=== PATIENT | female | born 1935 | race Caucasian/White ===

== ENCOUNTER 2017-05-11 00:19 | Emergency (ER) | payer OTHER ==
[~2017-05-11] VITALS: Ht 165.1 cm; Wt 68.0 kg
[~2017-05-11 00:19] MED LIST: AMLO5TAB2 PO; ASPI325T8 PO; HYDR12.53 PO; HYDR25TA9 PO; LEVO112T4 PO; METO25TA4 PO; PSYL1PAC7 PO; SIMV20TA3 PO; TOPROL XL PO
[2017-05-11] MEDS ORDERED: IV NORMAL SALINE 1000ML BAG 1,000 ML IV ONE ×2 (01:30→02:15)
[2017-05-11] MEDS ORDERED: ONDANSETRON PF 4 MG/2 ML VIAL. IV ONE ×2 (01:30→02:15)
[2017-05-11 02:02] LABS: BASO # 0.1 x10^3/uL (0.0-0.2); BASO % 1 % (0-3); EOS % 0 % (0-3); HEMOGLOBIN 14.9 g/dL (12.0-15.5); LYMPH # 1.1 x10^3/uL (1.0-4.8); LYMPH % 15 % (24-48); MEAN CORPUSCULAR HEMOGLOBIN 30 pg (25-35); MEAN CORPUSCULAR HGB CONC 34 g/dL (31-37); MEAN CORPUSCULAR VOLUME 87 fL (79-100); MONO % 9 % (0-9); NEUT % 76 % (31-73); PLATELET COUNT 292 x10^3/uL (140-400); RED BLOOD COUNT 5.05 x10^6/uL (3.50-5.40); RED CELL DISTRIBUTION WIDTH 14.2 % (11.5-14.5); WHITE BLOOD COUNT 7.6 x10^3/uL (4.0-11.0)
[2017-05-11 02:57] LABS: CALCIUM 8.6 mg/dL (8.5-10.1); CREATININE 0.4 mg/dL (0.6-1.0); GFR 152.4; POTASSIUM 3.4 mmol/L (3.5-5.1)
[2017-05-11 03:03] LABS: ALBUMIN 3.7 g/dL (3.4-5.0); ALBUMIN/GLOBULIN RATIO 1.2 (1.0-1.7); TOTAL BILIRUBIN 0.8 mg/dL (0.2-1.0); TOTAL PROTEIN 6.9 g/dL (6.4-8.2)
[2017-05-11 03:10] LABS: BACTERIA,URINE FEW /HPF (0-FEW); BILIRUBIN,URINE NEGATIVE (NEG); GLUCOSE,URINE NEGATIVE (NEG); NITRITE,URINE NEGATIVE (NEG); PROTEIN,URINE 30 mg/dL (NEG-TRACE); RBC,URINE OCC /HPF (0-2); UROBILINOGEN,URINE 0.2 mg/dL (0.2 mg/dL)
[2017-05-11 03:11] LABS: SQUAMOUS EPITHELIAL CELL,UR OCC /LPF
[2017-05-11] MEDS ORDERED: CEPH-264 PO (05:13)
[2017-05-11] MEDS ORDERED: ONDA4TAB10 SL (05:13)
--- NOTE | 2017-05-11 05:13 | PHYS DOC ---
Past Medical History Past Medical History: Hypertension, Hypothyroid, Other Additional Past Medical Histor: non-malig brain tumor Past Surgical History: , Other Additional Past Surgical Histo: heart cath Alcohol Use: None Drug Use: None Adult General Chief Complaint Chief Complaint: NAUSEA/VOMITING/DIARRHA HPI HPI Patient is a 82 year old female presents to the ER today secondary to nausea vomiting and diarrhea. Patient has any fevers shakes chills cough cold runny nose. Patient denies any abdominal pain. Patient has any chest pain. Patient reports she is able tolerate by mouth's well. Patient reports symptoms started earlier today. Symptoms are intermittent in nature. Review of systems Constitutional: Denies fever or chills [] Eyes: Denies change in visual acuity, redness, or eye pain [] All other review systems are negative except as documented in the history of present illness portion. Physical exam Constitutional: Well developed, well nourished, no acute distress, non-toxic appearance. [] HENT: Normocephalic, atraumatic, bilateral external ears normal, oropharynx moist, no oral exudates, nose normal. [] Eyes: conjunctiva normal, no discharge. [] Neck: Normal range of motion, no tenderness, supple, no stridor. [] Cardiovascular:Heart rate regular rhythm, Lungs & Thorax: Bilateral breath sounds clear to auscultation [] Abdomen: Bowel sounds normal, soft, no tenderness, no masses, no pulsatile masses. [] Skin: Warm, dry, Back: No tenderness, Extremities: No tenderness, no cyanosis, Neurologic: Alert and oriented X 3, normal motor function, normal sensory function, no focal deficits noted. [] Psychologic: Affect normal, judgement normal, mood normal. [] Assessment and plan a 82-year-old female with nausea vomiting diarrhea. Patient had labs drawn the ED which were all within normal limits. Patient feels much improved after the IV fluids. Patient received Zofran and normal saline solution. Patient was discharged home on Zofran as well. Able for discharge to home at this time. Current Medications Current Medications Current Medications Medications (Trade) Dose Ordered Sig/[place] Start Time Stop Time Status Last Admin Dose Admin Ceftriaxone Sodium 50 ml @ 100 mls/hr 1X ONCE 05/11/17 04:30 05/11/17 04:59 DC 05/11/17 05:10 100 MLS/HR Ondansetron HCl (Zofran) 4 mg 1X ONCE 05/11/17 02:15 05/11/17 02:16 DC Sodium Chloride 1,000 ml @ 1,000 mls/hr 1X ONCE 05/11/17 02:15 05/11/17 03:14 DC 05/11/17 02:22 1,000 MLS/HR Allergies Allergies Allergies Coded Allergies Type Severity Reaction Last Updated Verified Iodinated Contrast- Oral and IV Dye Allergy Severe 10/26/14 Yes cephalexin Allergy Intermediate Swelling 05/13/17 Yes Current Patient Data Vital Signs Vital Signs Date Time Temp Pulse Resp B/P (MAP) Pulse Ox O2 Delivery O2 Flow Rate FiO2 05/11/17 05:30 79 133/60 (84) 96 Room Air 05/11/17 00:22 98.6 16 98.6 Lab Values Laboratory Tests Test 05/11/17 00:35 05/11/17 02:22 05/11/17 02:33 White Blood Count 7.6 x10^3/uL (4.0-11.0) Red Blood Count 5.05 x10^6/uL (3.50-5.40) Hemoglobin 14.9 g/dL (12.0-15.5) Hematocrit 44.0 % (36.0-47.0) Mean Corpuscular Volume 87 fL (79-100) Mean Corpuscular Hemoglobin 30 pg (25-35) Mean Corpuscular Hemoglobin Concent 34 g/dL (31-37) Red Cell Distribution Width 14.2 % (11.5-14.5) Platelet Count 292 x10^3/uL (140-400) Neutrophils (%) (Auto) 76 % (31-73) H Lymphocytes (%) (Auto) 15 % (24-48) L Monocytes (%) (Auto) 9 % (0-9) Eosinophils (%) (Auto) 0 % (0-3) Basophils (%) (Auto) 1 % (0-3) Neutrophils # (Auto) 5.8 x10^3uL (1.8-7.7) Lymphocytes # (Auto) 1.1 x10^3/uL (1.0-4.8) Monocytes # (Auto) 0.7 x10^3/uL (0.0-1.1) Eosinophils # (Auto) 0.0 x10^3/uL (0.0-0.7) Basophils # (Auto) 0.1 x10^3/uL (0.0-0.2) Sodium Level 131 mmol/L (136-145) L Potassium Level 3.4 mmol/L (3.5-5.1) L Chloride Level 93 mmol/L (98-107) L Carbon Dioxide Level 27 mmol/L (21-32) Anion Gap 11 (6-14) Blood Urea Nitrogen 13 mg/dL (7-20) Creatinine 0.4 mg/dL (0.6-1.0) L Estimated GFR (Cockcroft-Gault) 152.4 BUN/Creatinine Ratio 33 (6-20) H Glucose Level 142 mg/dL (70-99) H Calcium Level 8.6 mg/dL (8.5-10.1) Total Bilirubin 0.8 mg/dL (0.2-1.0) Aspartate Amino Transferase (AST) 34 U/L (15-37) Alanine Aminotransferase (ALT) 26 U/L (14-59) Alkaline Phosphatase 47 U/L (46-116) Total Protein 6.9 g/dL (6.4-8.2) Albumin 3.7 g/dL (3.4-5.0) Albumin/Globulin Ratio 1.2 (1.0-1.7) Lipase 96 U/L (73-393) Urine Collection Type Unknown Urine Color Yellow Urine Clarity Clear Urine pH 7.0 Urine Specific Carson 1.020 Urine Protein 30 mg/dL (NEG-TRACE) Urine Glucose (UA) Negative mg/dL (NEG) Urine Ketones (Stick) 40 mg/dL (NEG) Urine Blood Negative (NEG) Urine Nitrite Negative (NEG) Urine Bilirubin Negative (NEG) Urine Urobilinogen Dipstick 0.2 mg/dL (0.2 mg/dL) Urine Leukocyte Esterase Large (NEG) Urine RBC Occ /HPF (0-2) Urine WBC 11-20 /HPF (0-4) Urine Squamous Epithelial Cells Occ /LPF Urine Bacteria Few /HPF (0-FEW) Urine Mucus Mod /LPF Laboratory Tests 05/11/17 00:35 Laboratory Tests 05/11/17 02:22 Microbiology 05/11/17 Urine Culture - Final, Complete 05/11/17 Urine Culture Result 1 (JOSSELYN) - Final, Complete EKG EKG [] Radiology/Procedures Radiology/Procedures [] Course & Med Decision Making Course & Med Decision Making Pertinent Labs and Imaging studies reviewed. (See chart for details) [] Dragon Disclaimer Dragon Disclaimer This electronic medical record was generated, in whole or in part, using a voice recognition dictation system. Departure Departure Impression: Primary Impression: Vomiting Additional Impressions: Dehydration Urinary tract infection Disposition: 01 HOME, SELF-CARE Condition: IMPROVED Referrals: VIVIANE RODGERS MD (PCP) Patient Instructions: Cyclic Vomiting Syndrome, Dehydration, Adult, Urinary Tract Infection Scripts Ondansetron (ZOFRAN ODT) 4 Mg Tab.rapdis 1 TAB SL Q6HRS Y for NAUSEA, #12 TAB Prov: PRETTY LEMON MD 05/11/17 Cephalexin (KEFLEX) 500 Mg Capsule 500 MG PO QID for 10 Days, CAP Prov: PRETTY LEMON MD 05/11/17 Problem Qualifiers Primary Impression: Vomiting Vomiting type: unspecified Vomiting Intractability: non-intractable Nausea presence: with nausea Qualified Codes: R11.2 - Nausea with vomiting, unspecified Additional Impressions: Urinary tract infection Urinary tract infection type: site unspecified Hematuria presence: without hematuria Qualified Codes: N39.0 - Urinary tract infection, site not specified PRETTY LEMON MD May 11, 2017 05:13
[2017-05-11 05:30] VITALS: BP 133/60
== END 2017-05-11 05:57 | disposition home or self-care (01) ==
LOC: ER 00:19
DX: E86.0 Dehydration (principal); N39.0 Urinary tract infection, site not specified; R19.7 Diarrhea, unspecified; E03.9 Hypothyroidism, unspecified; I10 Essential (primary) hypertension; Z91.041 Radiographic dye allergy status; Z88.1 Allergy status to other antibiotic agents
CPT/HCPCS: 36415; 80053; 81001; 83690; 85027; 87086; 96361; 96365; 96375; 99285; J0690; J2405; J7030

== ENCOUNTER 2017-05-13 15:18 | Emergency (ER) | payer MEDICARE, OTHER ==
[~2017-05-13] VITALS: Ht 154.9 cm; Wt 68.0 kg
[~2017-05-13 15:18] MED LIST changes: +CEPH-264 PO; +ONDA4TAB10 SL
[2017-05-13 16:01] VITALS: BP 156/81
--- NOTE | 2017-05-13 16:10 | PHYS DOC ---
Past Medical History Past Medical History: Hypertension, Hypothyroid, Other Additional Past Medical Histor: non-malig brain tumor Past Surgical History: , Other Additional Past Surgical Histo: heart cath Alcohol Use: None Drug Use: None Adult General Chief Complaint Chief Complaint: ALLERGIC REACTION HPI HPI Patient is a 82 year old female who presents with concern of allergic reaction to keflex. She notes some throat swelling that occurred this afternoon around 1300. She called EMS and was evaluated and recommend not to transport and to come for evaluation nonemergently. Her symptoms have since resolved and she feels at baseline now. She started taking this 2 days ago for UTI. She was seen here for this. She notes improvement from prior symptoms of nausea and now is thirsty. She is tolerating oral intake. Denies abdominal pain, diarrhea , constipation, dysuria, dyspnea, throat pain, cough, voice change, difficulty swallowing, difficulty speaking, numbness, tingling, weakness or dizziness, vision changes, chest pain, back pain, neck pain. Review of Systems Review of Systems Constitutional: Denies fever or chills [] Eyes: Denies change in visual acuity, redness, or eye pain [] HENT: Denies nasal congestion or sore throat [] Respiratory: Denies cough or shortness of breath [] Cardiovascular: No additional information not addressed in HPI [] GI: Denies abdominal pain, nausea, vomiting, bloody stools or diarrhea [] : Denies dysuria or hematuria [] Musculoskeletal: Denies back pain or joint pain [] Integument: Denies rash or skin lesions [] Neurologic: Denies headache, focal weakness or sensory changes [] Endocrine: Denies polyuria or polydipsia [] Allergies Allergies Allergies Coded Allergies Type Severity Reaction Last Updated Verified Iodinated Contrast- Oral and IV Dye Allergy Severe 10/26/14 Yes cephalexin Allergy Intermediate Swelling 05/13/17 Yes Physical Exam Physical Exam Constitutional: Well developed, well nourished, no acute distress, non-toxic appearance. [] HENT: Normocephalic, atraumatic, bilateral external ears normal, oropharynx moist, no oral exudates, nose normal. Uvula is midline without edema [] Eyes: PERRLA, EOMI. [] Neck: Normal range of motion, no tenderness, supple, no stridor. [] Cardiovascular:Heart rate regular rhythm [] Lungs & Thorax: Bilateral breath sounds clear to auscultation [] Abdomen: Bowel sounds normal, soft, no tenderness. [] Skin: Warm, dry, no erythema, no rash. [] Back: Normal range of motion. [] Extremities: No tenderness, ROM intact, no edema. [] Neurologic: Alert and oriented X 3, normal motor function, normal sensory function, no focal deficits noted. [] Psychologic: Affect normal, judgement normal, mood normal. [] Course & Med Decision Making Course & Med Decision Making Pertinent Labs and Imaging studies reviewed. (See chart for details) Urine culture grew mixed urogenital grayson; given symptoms, recommend no longer taking cephalexin and adding it to allergy profile. Recommend no further antibiotic therapy at this time. Recommend follow-up with her primary care doctor closely. Return precautions given. She understands and agrees with plan. Dragon Disclaimer Dragon Disclaimer This electronic medical record was generated, in whole or in part, using a voice recognition dictation system. Departure Departure Impression: Primary Impression: Concern about disease without diagnosis Disposition: 01 HOME, SELF-CARE Condition: STABLE Referrals: VIVIANE RODGERS MD (PCP) Patient Instructions: Anaphylactic Reaction, [id number] Additional Instructions: Stop taking cephalexin. Follow-up with your primary care doctor. Return for any concerns. Nghia CHO MD May 13, 2017 16:10
== END 2017-05-13 16:18 | disposition home or self-care (01) ==
LOC: ER 15:18
DX: Z03.89 Encounter for observation for other suspected diseases and conditions ruled out (principal); I10 Essential (primary) hypertension; E03.9 Hypothyroidism, unspecified; Z88.1 Allergy status to other antibiotic agents; Z91.041 Radiographic dye allergy status
CPT/HCPCS: 99281

== ENCOUNTER → 2017-05-27 | Outpatient (CLI) | payer MEDICARE ==
[2017-05-13 16:01] VITALS: BP 156/81
[~2017-05-27] MED LIST changes: +GADOBUTROL 7.5 MMOL/7.5 ML VIAL IV ONE
--- NOTE | 2017-05-27 15:56 | KCIC ---
EXAM: MRI BRAIN WITH AND WITHOUT CONTRAST. HISTORY: Imbalance, weakness, transient ischemic attack. Meningiomas. TECHNIQUE: Magnetic resonance images of the brain were obtained before and after the intravenous administration of 6 mL Gadavist. COMPARISON: January 01, 2017. FINDINGS: An enhancing extra-axial mass along the left lateral aspect of the posterior cranial fossa is consistent with a meningioma. It measures 2.6 x 2.3 cm and is unchanged. It is along the distal course of the left transverse sinus, but there is enhancement within the sinuses proximally and distally. There is also mass effect along the lateral aspect the left cerebellar hemisphere without parenchymal edema or midline shift. A second small meningioma along the left aspect of the frontal falx measures 7 x 3 mm and is also stable. There are no enhancing parenchymal lesions. There is no diffusion restriction. Scattered foci of white matter T2/FLAIR hyperintensity are nonspecific but likely indicate mild chronic microangiopathic change. Prominence of the lateral ventricles and hemispheric sulci indicates moderate atrophy. The paranasal sinuses are clear. There are changes of bilateral cataract surgery. The temporal bones are unremarkable. The calvarium demonstrates no suspicious lesions. IMPRESSION: 1. Stable 2.6 cm meningioma along the left lateral aspect of the posterior cranial fossa with mild mass effect along the left cerebellar hemisphere. 2. Stable 7 mm left frontal parafalcine meningioma. 3. Moderate atrophy and mild chronic microangiopathic white matter change. No acute intracranial findings. Electronically signed by: Duran Saucedo MD (05/27/2017 3:53 PM)
== END | disposition home or self-care (01) ==
LOC: KCIC MRI 14:16
PROVIDERS: ATTEND Nurse Practitioner
DX: D32.0 Benign neoplasm of cerebral meninges (principal); G45.9 Transient cerebral ischemic attack, unspecified
CPT/HCPCS: 70553; A9585

== ENCOUNTER → 2018-07-17 | Outpatient (CLI) | payer MEDICARE ==
[~2018-07-17] MED LIST changes: -GADOBUTROL 7.5 MMOL/7.5 ML VIAL IV ONE; +POTA20LI27 PO
--- NOTE | 2018-07-17 11:08 | KCIC ---
Bilateral diagnostic digital mammograms with 3-D tomosynthesis: Reason for examination: Lateral left breast pain. Comparison is made to previous studies dated 06/23/2015 and 10/09/2011. Bilateral mammograms in CC and oblique projections were obtained with 2-D imaging and 3-D tomosynthesis imaging on a Siemens Inspiration unit and reviewed on the workstation. Interpretation was made with the benefit of CAD. The skin and nipples show no abnormalities. No abnormal axillary lymph nodes are seen. The breast parenchyma shows scattered fatty and fibroglandular density. (Breast density: Category B.) There are no dominant masses, suspicious calcifications or architectural distortion. Benign calcifications are present. Impression: No evidence of malignancy. Recommend routine screening. BI-RAD Category 2: Benign. "Our facility is accredited by the [employer] Mammography Program." This patient's information has been entered into a reminder system for the patient to be notified with the results of her examination and a target date for the next mammogram. Electronically signed by: Elyssa Salomon MD (07/17/2018 11:04 AM) [id number]
== END | disposition home or self-care (01) ==
LOC: KCIC MAMMO 09:48
PROVIDERS: ATTEND Family Medicine
DX: N64.4 Mastodynia (principal); I10 Essential (primary) hypertension; E78.5 Hyperlipidemia, unspecified; E03.9 Hypothyroidism, unspecified; Z86.73 Personal history of transient ischemic attack (TIA), and cerebral infarction without residual deficits; Z90.710 Acquired absence of both cervix and uterus
CPT/HCPCS: 77066; G0279; 77062

== ENCOUNTER → 2019-04-07 | Outpatient (CLI) | payer MEDICARE ==
[~2019-04-07] MED LIST changes: +AMLO5TAB10 PO; -AMLO5TAB2 PO; +CARV6.25 PO; +CARV6.2511 PO; +GADOBUTROL 7.5 MMOL/7.5 ML VIAL IV ONE; +HYDR-2145 PO; -HYDR12.53 PO; +HYDR12.575 PO; -HYDR25TA9 PO
--- NOTE | 2019-04-07 13:33 | KCIC ---
MRI Brain with and without contrast History: Meningioma, previous radiation, fainting spells Technique: Multiplanar, multi sequential pre and postcontrast MR imaging was performed of the brain. Comparison: May 27, 2017 Findings: There is again extra-axial enhancing mass along the lateral aspect of the left posterior fossa. This in greatest dimension measures about 2.6 cm transverse by 2.6 m AP by 2.3 cm cc. Size is similar. While near, the adjacent left transverse venous sinus appears patent. There is again some mass effect upon the left lateral cerebellar parenchyma. There is similar degree of mild FLAIR hypertense signal of the left cerebellar parenchyma. There is again small extra-axial enhancing mass protruding to the left along the anterior falx about 0.8 cm AP by 0.3 cm transverse by 0.6 cm CC, fairly similar. There is no new abnormal parenchymal enhancement. There is no new midline shift. Ventricular size is within normal limits. There is again mild generalized supratentorial atrophy. There are again a few scattered small foci of T2 and FLAIR hyperintense signal of the supratentorial parenchyma. There has been lens surgery bilaterally. There is mild bilateral ethmoid air cell mucosal thickening. Mastoid air cells are overall aerated. Impression: 1. Size of extra-axial enhancing mass of the lateral aspect of the left posterior fossa is stable as is a small left parafalcine extra-axial enhancing mass, evidence of meningiomas. No new intracranial abnormality is identified. There is again generalized supratentorial atrophy. Electronically signed by: Ranulfo Marmolejo MD (04/07/2019 1:30 PM) [id number]
== END | disposition home or self-care (01) ==
LOC: KCIC MRI 10:12
PROVIDERS: ATTEND Radiology Radiation Oncology
DX: G31.89 Other specified degenerative diseases of nervous system (principal); D32.9 Benign neoplasm of meninges, unspecified; Z92.3 Personal history of irradiation
CPT/HCPCS: 70553; A9585

== ENCOUNTER → 2021-03-07 | Outpatient (CLI) | payer MEDICARE ==
[~2021-03-07] MED LIST changes: +AMLO-186 PO; -AMLO5TAB10 PO; -GADOBUTROL 7.5 MMOL/7.5 ML VIAL IV ONE; -LEVO112T4 PO; +LEVO112T49 PO; +POTA20LI2 PO; -POTA20LI27 PO; +SIMV20TA18 PO; -SIMV20TA3 PO
--- NOTE | 2021-03-07 14:03 | KCIC ---
EXAM: DUAL ENERGY X-RAY ABSORPTIOMETRY (DEXA). HISTORY: Postmenopausal screening. FINDINGS: The lowest measured T-score is -1.6 in the left hip, based on a bone mineral density of 0.7 42 g/cm^2. Refer to the worksheets for full detail. No comparison examinations are available. IMPRESSION: 1. Low bone mass. Bone mineral density yields a T-score between -1.0 and -2.5. Fracture risk is incre ased. 2. FRAX report: Not calculated. METHODOLOGY: Dual energy x-ray absorptiometry was performed to measure bone mineral density. The foll owing analysis is based on the 2019 Official Positions of the International Society for Clinical Dens itometry: Measurements of the hips and the average of L1-L4 are preferred. When the spine and/or hip cannot be feasibly measured or interpreted, or in the setting of hyperparathyroidism, distal radial bone minera l density may be measured. The lumbar spine T-score is based on the average bone mineral density of L1-L4. In the setting of art ifact or anatomic abnormality, some lumbar levels may be excluded, and the remaining levels used for calculation. A single lumbar level is not used for diagnosis, and if only a single level is available for assessment, another anatomic site will be used to assign a diagnosis. The hip T-score is based on the bone mineral density measurement of the femoral neck or total proxima l femur of either side, whichever is lowest. Bilateral mean values are not used for diagnosis. The forearm T-score is derived from 33% of the distal radius of the nondominant forearm. Electronically signed by: Yaritza Baumann MD (03/07/2021 2:00 PM) [facility] [place]
== END ==
LOC: KCIC DEXA 12:40
PROVIDERS: ATTEND Internal Medicine
DX: M81.0 Age-related osteoporosis without current pathological fracture (principal)
CPT/HCPCS: 77080

== ENCOUNTER → 2021-11-23 | Outpatient (CLI) | payer MEDICARE ==
--- NOTE | 2021-11-23 10:28 | KCIC ---
EXAM: Lower extremity arterial Doppler sonogram with ankle-brachial indices (ALICIA). HISTORY: Nonpalpable pulses. Peripheral vascular disease. TECHNIQUE: Doppler sonographic evaluation of the lower extremities was performed and pressure reading s were assessed. FINDINGS: Right brachial pressure: 101 mmHg Left brachial pressure: 100 mmHg Right ankle pressure (dorsalis pedis artery): 91 mmHg Right ankle pressure (posterior tibial artery): 84 mmHg Right ALICIA: 0.9 Left ankle pressure (dorsalis pedis artery): 82 mmHg Left ankle pressure (posterior tibial artery): 84 mmHg Left ALICIA: 0.83 There is severe partially calcified atherosclerotic plaque throughout the lower extremity arteries. T here are multiple collateral vessels. There is an abnormal monophasic waveform within the distal left posterior tibial artery, consistent with hemodynamically significant proximal stenosis. There is a severely elevated peak systolic velocity within the mid left superficial femoral artery, m easuring 288 cm/s. There are also mildly elevated peak systolic velocities within the right deep femo ral and proximal superficial femoral artery, measuring 152 cc/s and 168 cm/s, respectively. IMPRESSION: 1. 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 There is also a monophasic wave form within the distal left posterior tibial artery due to hemodynamically significant proximal steno sis. 2. Mild stenosis involving the right deep femoral and proximal superficial femoral artery. 3. Severe atherosclerotic plaque throughout the lower extremity arteries and associated multiple hattie ateral vessels. 4. No evidence of arterial occlusion. 5. Low normal right ankle-brachial index and mildly decreased left brachial index, the latter which f avors mild peripheral vascular disease. Electronically signed by: Yaritza Baumann MD (11/23/2021 10:25 AM) [id number]
== END ==
LOC: KCIC US 08:53
PROVIDERS: ATTEND Podiatrist
DX: I70.203 Unspecified atherosclerosis of native arteries of extremities, bilateral legs (principal); R09.89 Other specified symptoms and signs involving the circulatory and respiratory systems
CPT/HCPCS: 93922; 93925